=== PATIENT | male | born 1990 | race Hispanic/Latino ===

== ENCOUNTER 2023-06-27 10:15 | Emergency (ER) | payer OTHER, SELFPAY ==
[2023-06-27 10:19] VITALS: BP 115/68; PULSE 74; RESP 18; TEMP 36.8; O2SAT 95; BMI 46.0
--- NOTE | 2023-06-27 10:23 | DI.RAD.S_ITS ---
PROCEDURE: XR CHEST 1V INDICATIONS: cough bloody sputum TECHNIQUE: One view of the chest was acquired. COMPARISON: None. FINDINGS: Surgical changes and devices: None. Lungs and pleura: Lungs are clear. No pleural effusions or pneumothorax. Mediastinum: Mediastinal contours appear normal. Heart size is normal. Bones and chest wall: No suspicious bony lesions. Overlying soft tissues appear unremarkable. IMPRESSION: No acute cardiopulmonary process. Dictated by: Boris Romeo M.D. on 06/27/2023 at 11:31 Approved by: Boris Romeo M.D. on 06/27/2023 at 11:31
[2023-06-27 11:15] LABS: COVID-19 CEPHEID 4-PLEX PCR Negative (Negative); Influenza A - CEPHEID Flu A NEGATIVE (NEGATIVE); Influenza B - CEPHEID Flu B NEGATIVE (NEGATIVE); Respiratory Syncytial Virus Negative (Negative)
[2023-06-27] MEDS: ALBUTEROL/IPRATROPIUM 3 ML AMPUL INH ×2 (13:08→13:21)
[2023-06-27] MEDS: predniSONE 20 MG TABLET 40 MG PO (13:10)
[2023-06-27 13:47] VITALS: BP 127/66; PULSE 79; RESP 20; O2SAT 96
--- NOTE | 2023-06-27 14:54 | ED_ITS ---
HPI - URI/Sore Throat <Doreen Enriquez PA-C - Last Filed: 06/27/23 15:02> General Chief Complaint: Upper Respiratory Symptoms Stated Complaint: head aches, congestion, coughing blood Time Seen by Provider: 06/27/23 12:49 Source: patient Mode of arrival: Ambulatory History of Present Illness HPI Narrative: Patient is a 32-year-old male with a history of asthma who presents with cough, congestion, headache x3 days. He uses an albuterol inhaler as needed, reportedly several times a day at baseline. He has been using it recently with not much improvement in his shortness of breath or cough. He had a telehealth visit with his primary care yesterday and they prescribed him a Z-Mayank for walking pneumonia, as well as a codeine cough syrup. He presents today because he continues to feel unwell. He is not tried taking any Tylenol or cold medicine. He has had 2 episodes of blood-streaked sputum. He vapes. He is on no maintenance medication for his asthma. Related Data Previous Rx's Medication Instructions Recorded albuterol sulfate 2.5 mg/3 mL 2.5 mg (3 mL) inhalation Q4H PRN 06/27/23 (0.083 %) solution for nebulization shortness of breath or wheezing #90 mL compressor, for nebulizer #1 ea 06/27/23 nebulizer accessories #1 ea 06/27/23 Allergies Allergy/AdvReac Type Severity Reaction Status Date / Time No Known Drug Allergies Allergy Verified 06/27/23 10:23 Review of Systems <Doreen Enriquez PA-C - Last Filed: 06/27/23 15:02> Review of Systems ROS Unobtainable: All systems reviewed & are unremarkable except as noted in HPI and below Patient History <Doreen Enriquez PA-C - Last Filed: 06/27/23 15:02> Social History Smoking Status: Current every day smoker Smoking Status: Current every day smoker tobacco type: vaping alcohol intake frequency: 0-2 drinks per day Substance Use Type: does not use Exam <Doreen Enriquez PA-C - Last Filed: 06/27/23 15:02> Narrative Exam Narrative: GENERAL: 32 year old patient appears stated age. Well-developed patient, in no distress. NEURO: AOx3. HEAD: Atraumatic. Normocephalic. EYES: Pupils equal round and reactive. Extraocular motions intact. No scleral icterus. No injection or drainage. CARDIOVASCULAR: Regular rate and rhythm without murmurs, gallops, or rubs. RESPIRATORY: Bilateral wheezing with decreased air movement GASTROINTESTINAL: Abdomen soft, non-tender, nondistended. EXTREMITIES: No edema or joint tenderness. SKIN: No rash or erythema of visible areas Initial Vital Signs Initial Vital Signs: Vital Signs Temperature 98.3 F 06/27/23 10:19 Pulse Rate 74 06/27/23 10:19 Respiratory Rate 18 06/27/23 10:19 Blood Pressure 115/68 06/27/23 10:19 Pulse Oximetry 95 06/27/23 10:19 Oxygen Delivery Method Room Air 06/27/23 10:19 <Frederic Brown MD - Last Filed: 07/05/23 08:28> Initial Vital Signs Initial Vital Signs: Vital Signs Temperature 98.3 F 06/27/23 10:19 Pulse Rate 74 06/27/23 10:19 Respiratory Rate 18 06/27/23 10:19 Blood Pressure 115/68 06/27/23 10:19 Pulse Oximetry 95 06/27/23 10:19 Oxygen Delivery Method Room Air 06/27/23 10:19 Course <Doreen Enriquez PA-C - Last Filed: 06/27/23 15:02> Orders Ordered: Discontinued Medications Albuterol/Ipratropium (Albuterol/Ipratropium 3 Ml Ampul) 3 ml INH NOW ONE Stop: 06/27/23 12:59 Last Admin: 06/27/23 13:08 Dose: 3 ml Documented By: LILO Albuterol/Ipratropium (Albuterol/Ipratropium 3 Ml Ampul) 3 ml INH NOW ONE Stop: 06/27/23 13:18 Last Admin: 06/27/23 13:21 Dose: 3 ml Documented By: LILO Prednisone (Prednisone 20 Mg Tablet) 40 mg PO NOW ONE Stop: 06/27/23 12:59 Last Admin: 06/27/23 13:10 Dose: 40 mg Documented By: YUDELKA Vital Signs Vital signs: Vital Signs - 8 hr 06/27/23 10:19 06/27/23 13:47 Temperature 98.3 F Pulse Rate 74 79 Respiratory Rate 18 20 Blood Pressure 115/68 127/66 Pulse Oximetry 95 96 Oxygen Delivery Method Room Air Room Air <Frederic Brown MD - Last Filed: 07/05/23 08:28> Orders Ordered: Discontinued Medications Albuterol/Ipratropium (Albuterol/Ipratropium 3 Ml Ampul) 3 ml INH NOW ONE Stop: 06/27/23 12:59 Last Admin: 06/27/23 13:08 Dose: 3 ml Documented By: LILO Albuterol/Ipratropium (Albuterol/Ipratropium 3 Ml Ampul) 3 ml INH NOW ONE Stop: 06/27/23 13:18 Last Admin: 06/27/23 13:21 Dose: 3 ml Documented By: LILO Prednisone (Prednisone 20 Mg Tablet) 40 mg PO NOW ONE Stop: 06/27/23 12:59 Last Admin: 06/27/23 13:10 Dose: 40 mg Documented By: YUDELKA Vital Signs Vital signs: Vital Signs - 8 hr 06/27/23 10:19 06/27/23 13:47 Temperature 98.3 F Pulse Rate 74 79 Respiratory Rate 18 20 Blood Pressure 115/68 127/66 Pulse Oximetry 95 96 Oxygen Delivery Method Room Air Room Air MDM - URI/Sore Throat <Doreen Enriquez PA-C - Last Filed: 06/27/23 15:02> Lab Data Labs: Lab Results 06/27/23 Range/Units 10:25 SARS-CoV-2 (PCR) Negative (Negative) Influenza A (RT-PCR) Flu a negative (NEGATIVE) Influenza B (RT-PCR) Flu b negative (NEGATIVE) RSV (PCR) Negative (Negative) Imaging Data Chest x-ray: Radiologist's Impression: PROCEDURE:? XR CHEST 1V ? INDICATIONS:? cough bloody sputum ? TECHNIQUE:? One view of the chest was acquired.? ? COMPARISON:? None. ? FINDINGS:? ? Surgical changes and devices:? None.? ? Lungs and pleura:? Lungs are clear.? No pleural effusions or pneumothorax.? ? Mediastinum:? Mediastinal contours appear normal.? Heart size is normal.? ? Bones and chest wall:? No suspicious bony lesions.? Overlying soft tissues appear unremarkable.? ? ? IMPRESSION:? No acute cardiopulmonary process. ? ? Dictated by: Boris Romeo M.D. on 06/27/2023 at 11:31 ? ? Approved by: Boris Romeo M.D. on 06/27/2023 at 11:31 ? [facility] Narrative Medical decision making narrative: Multiple etiologies for patient's symptoms considered including, but not limited to: Asthma exacerbation, pneumonia, viral upper respiratory infection. Patient has normal vital signs and is afebrile. His chest x-ray shows diffuse haziness without any focal infiltrate, consistent with viral infection/asthma. His quad respiratory panel is negative. Patient is quite wheezy on exam, improved after 2 DuoNebs in the ER and oral prednisone. Suspect viral infection complicated by history of asthma. Suspect blood-streaked sputum secondary to frequent coughing, has not persisted while in emergency department. We will treat with 5 days of oral steroids. Suggested [id number] cold medicines and Tylenol for headache and congestion. Doubt bacterial component but may continue previously prescribed antibiotic and follow up with primary car e tomorrow as scheduled. Patient's symptoms improved over duration of stay with above-stated therapies. Findings and discharge diagnosis discussed with patient/family followed by verbalization of understanding Return precautions discussed with patient/family whom verbalize understanding of diagnosis and plan <Frederic Brown MD - Last Filed: 07/05/23 08:28> Lab Data Labs: Lab Results 06/27/23 Range/Units 10:25 SARS-CoV-2 (PCR) Negative (Negative) Influenza A (RT-PCR) Flu a negative (NEGATIVE) Influenza B (RT-PCR) Flu b negative (NEGATIVE) RSV (PCR) Negative (Negative) Discharge Plan Departure Patient Disposition: Home Clinical Impression: Asthma exacerbation Instructions: DI for Asthma -- Adult Activity Restrictions/Additional Instructions: *You have been diagnosed with asthma exacerbation. I have sent a prescription for a total of 5 days of steroids (you already took the 1st day in the emergency room) as well as a compressor, tubing and albuterol solution for nebulizer at home. Can continue taking your antibiotic as prescribed by your primary care. Follow up with your primary care tomorrow as scheduled. *What to do: *Please continue to take your regular medications as directed. [ x] New medication prescriptions sent to your pharmacy: [[facility]] [ ] New medication written as a paper prescription [ ] No new medications given *Please follow up with your primary care provider in 2-3 days, call for an appointment. Let them know you were seen in the Emergency Department and that we ask that you be seen in follow up. We will electronically transmit a record of today's note if your PCP is in our system *If you do not have a primary care provider please contact the [facility] Resource line at [phone]. They will ask some questions about your medical history and help get you set up with a doctor in the community. *Return to Emergency Department if you should have any new, worsening or concerning symptoms, such as [fever greater than 101 F, shaking chills, worsening pain, persistent vomiting or other concerning symptoms]. Prescriptions: New albuterol sulfate 2.5 mg /3 mL (0.083 %) solution for nebulization 2.5 mg inhalation Q4H PRN (Reason: shortness of breath or wheezing) Qty: 90 0RF (DME) compressor, for nebulizer Device See Rx Instructions .Route Qty: 1 0RF Rx Instructions: As directed (DME) nebulizer accessories Kit See Rx Instructions .Route Qty: 1 0RF Rx Instructions: As directed Stand Alone Forms: Patient Portal/API <Frederic rBown MD - Last Filed: 07/05/23 08:28> Cosign ED Attending Cosignature Attestation: I was immediately available in the department for consultation. ?This documentation has been reviewed and I agree with assessment and plan. Supervised by Frederic Brown MD
== END 2023-06-27 13:49 | disposition home or self-care (01) ==
PROVIDERS: Emergency Medicine; Emergency Provider Physician Assistant
DX: J45.901 Unspecified asthma with (acute) exacerbation (principal); R51.9 Headache, unspecified; Z20.822 Contact with and (suspected) exposure to COVID-19
CPT/HCPCS: 0241U; 71045; 99283

== ENCOUNTER → 2024-06-20 18:32 | Outpatient (CLI) | payer OTHER, MEDICAID, SELFPAY ==
[2024-06-20 19:23] LABS: Influenza A - CEPHEID Flu A NEGATIVE (NEGATIVE); Influenza B - CEPHEID Flu B NEGATIVE (NEGATIVE); Respiratory Syncytial Virus Negative (Negative)
[2024-06-20 19:28] LABS: COVID-19 CEPHEID 4-PLEX PCR POSITIVE (Negative)
== END ==
PROVIDERS: Visit Provider Nurse Practitioner Family
DX: R05.1 Acute cough (principal); J02.9 Acute pharyngitis, unspecified
CPT/HCPCS: 87635; 87400 ×2; 87420; 0241U; 87070; 87880

== ENCOUNTER → 2024-08-25 08:46 | Outpatient (CLI) | payer OTHER, SELFPAY ==
[2024-08-25 09:33] LABS: Influenza A - CEPHEID Flu A NEGATIVE (NEGATIVE); Influenza B - CEPHEID Flu B NEGATIVE (NEGATIVE); Respiratory Syncytial Virus Negative (Negative)
[2024-08-25 09:34] LABS: COVID-19 CEPHEID 4-PLEX PCR Negative (Negative)
== END ==
PROVIDERS: Visit Provider Physician Assistant Surgical
DX: R05.1 Acute cough (principal); R09.89 Other specified symptoms and signs involving the circulatory and respiratory systems
CPT/HCPCS: 0241U

== ENCOUNTER → 2024-12-24 11:01 | Outpatient (CLI) | payer OTHER, SELFPAY ==
[2024-12-24 11:47] LABS: Influenza A - CEPHEID Flu A NEGATIVE (NEGATIVE); Influenza B - CEPHEID Flu B POSITIVE (NEGATIVE); Respiratory Syncytial Virus Negative (Negative)
[2024-12-24 11:48] LABS: COVID-19 CEPHEID 4-PLEX PCR Negative (Negative)
== END ==
PROVIDERS: Visit Provider Nurse Practitioner Family
DX: Z20.828 Contact with and (suspected) exposure to other viral communicable diseases (principal)
CPT/HCPCS: 0241U

== ENCOUNTER 2024-12-24 11:03 | Emergency (ER) | payer OTHER, SELFPAY ==
[2024-12-24] VITALS (17 sets, daily range): BP systolic 108–135; BP diastolic 52–78; PULSE 78–101; RESP 9–22; TEMP 36.9–37.2; O2SAT 89–98; BMI 39.0
--- NOTE | 2024-12-24 11:39 | DI.RAD.S_ITS ---
PROCEDURE: XR CHEST 1V INDICATIONS: Shortness of breath TECHNIQUE: One view of the chest was acquired. COMPARISON: [facility], CR, XR CHEST 1V, 06/27/2023, 10:39. FINDINGS: Surgical changes and devices: None. Lungs and pleura: Lungs are clear. No pleural effusions or pneumothorax. Mediastinum: Mediastinal contours appear normal. Heart size is normal. Bones and chest wall: No suspicious bony lesions. Overlying soft tissues appear unremarkable. IMPRESSION: No acute cardiopulmonary pathology. Dictated by: Renzo Burk M.D. on 12/24/2024 at 12:31 Approved by: Renzo Burk M.D. on 12/24/2024 at 12:36
--- NOTE | 2024-12-24 11:52 | EKG_ITS ---
[address] [address] Test Date: 2024-12-24 Pat Name: Frank Edwards Department: [facility] Room: Gender: Male [employer]: SAMUEL : 1990 Requested By: Order Number: [id number] Reading MD: Burton Sheriff Measurements Intervals Alpha Rate: 95 P: 46 TN: 158 QRS: -87 QRSD: 82 T: 37 QT: 350 QTc: 439 Interpretive Statements Normal sinus rhythm Left axis deviation Inferior infarct , age undetermined Electronically Signed On 12-27-2024 18:28:17 PDT by Burton Sheriff
--- NOTE | 2024-12-24 11:58 | PC.NURSE ---
Pt anxious, States that he administered inhaler multiple times today. Sats 92-94% on RA
[2024-12-24 12:03] LABS: Add Manual Diff / Slide Review NO; Basophils Absolute Auto 0 /uL (0-100); Basophils Percent Auto 0.4 % (0-2); Eosinophils Absolute Auto 100 /uL (0-450); Eosinophils Percent Auto 1.3 % (2-4); Hematocrit 59.4 % (41-53); Lymphocytes Absolute Auto 1700 /uL (1100-4500); Lymphocytes Percent Auto 26.1 % (25-40); Mean Corpuscular HGB Conc 33.6 % (30-36); Mean Corpuscular Hemoglobin 29.7 PG (26-34); Mean Corpuscular Volume 88.4 fL (80-100); Monocytes Absolute Auto 700 /uL (0-900); Monocytes Percent Auto 11.4 % (3-14); Neutrophils Absolute Auto 3900 /uL (1500-7000); Neutrophils Percent Auto 60.8 % (50-75); Platelet Count 144 X10^3/uL (150-400); Red Blood Cell Count 6.72 X10^6/uL (4.5-5.9); Red Cell Distribution Width 14.4 % (11.6-14.8); White Blood Cell Count 6.4 X10^3/uL (4.5-11.0)
--- NOTE | 2024-12-24 12:06 | ED.GENADULT ---
HPI - General Adult General Chief complaint: Shortness of Breath/Dyspnea Stated complaint: SOB, O2 low Time Seen by Provider: 12/24/24 11:54 Source: patient Mode of arrival: Ambulatory History of Present Illness HPI narrative: 34-year-old gentleman with history chronic intermittent asthma began feeling ill 5 days ago with fevers, chills shortly thereafter became significantly nauseated with prolific vomiting unable to keep any liquids down 72 hours ago. Within the last 24 hours he has been able to keep liquids down but is now having more abdominal pain. Has not had much to eat in the last 5 days and does not yet having diarrhea. He is wheezing, he is having sweats, body aches, low-grade headaches and generally feels miserable. Because of his asthma they have an oxygen saturation monitor at home and found him to be in the low 80s at home. He comes in for additional evaluation. Nobody else home is currently sick. With his asthma he has been admitted to the hospital 1 prior time, has never required intubation. He has not having any palpitations, he does have some chest tightness and pain related to cough and breathing Related Data Home Medications Medication Instructions Recorded Confirmed albuterol sulfate 90 mcg/actuation 2 puff inhalation Q4H PRN 08/31/23 08/25/24 aerosol inhaler fluticasone propionate 44 1 puff inhalation BID 08/31/23 08/25/24 mcg/actuation HFA aerosol inhaler hydroxyzine HCl 25 mg tablet 25 mg PO BID PRN 08/31/23 08/25/24 inhalational spacing device #1 ea 08/31/23 08/25/24 (Compact Space Chamber) methadone 95mg PO DAILY 08/31/23 08/25/24 rizatriptan 5 mg disintegrating mg PO 08/31/23 08/25/24 tablet testosterone cypionate 200 mg/mL 100 mg IM 08/31/23 08/25/24 intramuscular oil terbinafine HCl 250 mg tablet 250 mg PO DAILY 06/20/24 08/25/24 Previous Rx's Medication Instructions Recorded albuterol sulfate 2.5 mg/3 mL 2.5 mg (3 mL) inhalation Q4H PRN 06/27/23 (0.083 %) solution for nebulization shortness of breath or wheezing #90 mL compressor, for nebulizer #1 ea 06/27/23 nebulizer accessories #1 ea 06/27/23 benzonatate 200 mg capsule 200 mg PO BID PRN cough #28 caps 06/20/24 semaglutide 2 mg/dose (8 mg/3 mL) 2 mg (0.75 mL) SUBCUT QWEEK #3 mL 12/05/24 subcutaneous pen injector albuterol sulfate 90 mcg/actuation 2 inh inhalation Q6H PRN shortness 12/24/24 breath activated powder inhaler of breath or wheezing #1 ea ondansetron 4 mg disintegrating 4 mg PO Q8H PRN nausea and 12/24/24 tablet vomiting #14 tabs oxycodone-acetaminophen 5 mg-325 1 tab PO Q6H PRN pain #14 tabs 12/24/24 mg tablet prednisone 20 mg tablet 20 mg PO DAILY #8 tabs 12/24/24 Allergies Allergy/AdvReac Type Severity Reaction Status Date / Time No Known Drug Allergies Allergy Verified 06/20/24 18:34 Review of Systems Review of Systems Narrative: Pertinent positive and negative findings as per HPI Patient History Medical History (Updated 12/24/24 @ 16:57 by Kyra Torres MD) Asthma Social History Smoking Status: Former smoker Smoking Status: Former smoker tobacco type: vaping alcohol intake frequency: 0-2 drinks per day Exam Initial Vital Signs Initial Vital Signs: Vital Signs Temperature 98.9 F 12/24/24 11:12 Pulse Rate 101 H 12/24/24 11:12 Respiratory Rate 22 12/24/24 11:12 Blood Pressure 110/68 12/24/24 11:12 Pulse Oximetry 89 L 12/24/24 11:12 Oxygen Delivery Method Room Air 12/24/24 11:12 General: Patient appears acutely ill, fatigued, diaphoretic, flushed, asks his to help with history as he is having difficulty speaking HEENT: Moist mucous membranes, normal sclera with reactive pupils, Neck: No JVD, no cervical adenopathy Respiratory: Lungs mild scattered wheeze in all lung stewart, rhonchi in the left base. No retractions appreciated Cardiac: Mildly tachycardic without murmurs Abdomen: Soft, nontender, no rebound or guarding, no flank pain Skin: Flushed without rashes or signs of skin infection Neurologic: Globally weak but otherwise Grossly neurologically intact with no obvious asymmetries or abnormalities Extremities: No trauma, well perfused, no lower extremity edema Psych: Cooperative, appropriate insight and affect Course Orders Ordered: ED Orders 12/24/24 11:39 XR chest 1V Stat EKG-12 Lead Stat Measure peak expiratory flow ONCE RT Consult Eval and Treat NOW 12/24/24 11:50 Complete Blood Count AUTO DIFF Stat Comprehensive Metabolic Panel Stat Lactate (Lactic Acid) Stat NT-proBNP (BNP-Adult 18+) Stat Prothrombin Time INR Stat Troponin I Stat 12/24/24 12:50 Blood Culture Stat 12/24/24 13:35 Lactate (Lactic Acid) Stat Sodium Chloride (Normal Saline 0.9%) 1,000 mls @ 1,000 mls/hr IV BOLUS ONE Stop: 12/24/24 16:57 Last Admin: 12/24/24 16:05 Dose: 1,000 mls/hr Documented By: Discontinued Medications Albuterol/Ipratropium (Albuterol/Ipratropium 3 Ml Ampul) 3 ml INH NOW ONE Stop: 12/24/24 12:19 Last Admin: 12/24/24 12:39 Dose: 3 ml Documented By: LILO Sodium Chloride (Normal Saline 0.9%) 1,000 mls @ 1,000 mls/hr IV BOLUS ONE Stop: 12/24/24 13:17 Last Infusion: 12/24/24 13:23 Dose: Infused Documented By: Admin: 12/24/24 12:39 Dose: 1,000 mls/hr Documented By: Ceftriaxone Sodium 2,000 mg/ (Sodium Chloride) 100 mls @ 200 mls/hr IV NOW ONE Stop: 12/24/24 12:19 Last Infusion: 12/24/24 13:20 Dose: Infused Documented By: Admin: 12/24/24 12:38 Dose: 200 mls/hr Documented By: Azithromycin 500 mg/ Dextrose 250 mls @ 250 mls/hr IV NOW ONE Stop: 12/24/24 12:19 Last Infusion: 12/24/24 14:35 Dose: Infused Documented By: Admin: 12/24/24 13:32 Dose: 250 mls/hr Documented By: Ketorolac Tromethamine (Ketorolac 30 Mg/Ml Vial) 15 mg IV NOW ONE Stop: 12/24/24 12:19 Last Admin: 12/24/24 12:38 Dose: 15 mg Documented By: Methylprednisolone (Methylprednisolone 125 Mg/2 Ml Vial) 125 mg IV NOW ONE Stop: 12/24/24 12:19 Last Admin: 12/24/24 12:38 Dose: 125 mg Documented By: Ondansetron HCl (Ondansetron 4 Mg/2 Ml Inj) 4 mg IV NOW ONE Stop: 12/24/24 12:19 Last Admin: 12/24/24 13:39 Dose: Not Given Documented By: Oxycodone/Acetaminophen (Oxycodone/Acetaminophen 5/325 Tablet) 1 tab PO NOW ONE Stop: 12/24/24 16:18 Last Admin: 12/24/24 16:21 Dose: 1 tab Documented By: Vital Signs Vital signs: Vital Signs - 8 hr 12/24/24 11:12 12/24/24 11:59 12/24/24 12:00 Temperature 98.9 F Pulse Rate 101 H 94 H 94 H Respiratory Rate 22 10 L 10 L Blood Pressure 110/68 Pulse Oximetry 89 L 91 92 Oxygen Delivery Method Room Air Nasal Cannula Oxygen Flow Rate 2 12/24/24 12:01 12/24/24 12:01 12/24/24 12:30 Temperature Pulse Rate 98 H Respiratory Rate 10 L Blood Pressure 122/74 118/77 Pulse Oximetry 90 L Oxygen Delivery Method Nasal Cannula Oxygen Flow Rate 2 12/24/24 12:30 12/24/24 12:40 12/24/24 13:00 Temperature Pulse Rate 91 H Respiratory Rate 13 Blood Pressure 128/62 Pulse Oximetry 94 93 Oxygen Delivery Method Nasal Cannula Oxygen Flow Rate 2 12/24/24 13:00 12/24/24 13:30 12/24/24 13:30 Temperature Pulse Rate 94 H 86 Respiratory Rate 17 9 L Blood Pressure 121/59 L Pulse Oximetry 92 92 Oxygen Delivery Method Oxygen Flow Rate 12/24/24 14:00 12/24/24 14:00 12/24/24 14:30 Temperature Pulse Rate 82 85 Respiratory Rate 10 L 14 Blood Pressure 110/58 L Pulse Oximetry 91 92 Oxygen Delivery Method Nasal Cannula Oxygen Flow Rate 2 12/24/24 14:30 12/24/24 15:00 12/24/24 15:00 Temperature Pulse Rate 80 Respiratory Rate 16 Blood Pressure 111/52 L 108/58 L Pulse Oximetry 94 Oxygen Delivery Method Room Air Oxygen Flow Rate 12/24/24 15:30 12/24/24 15:30 12/24/24 16:05 Temperature Pulse Rate 83 Respiratory Rate 11 L 16 Blood Pressure 108/57 L Pulse Oximetry 92 93 Oxygen Delivery Method Oxygen Flow Rate Medical Decision Making Lab Data 12/24/24 11:50 12/24/24 11:50 Labs: Lab Results 12/24/24 12/24/24 Range/Units 11:50 13:35 WBC 6.4 (4.5-11.0) X10^3/uL RBC 6.72 H (4.5-5.9) X10^6/uL Hgb 20.0 H (13.5-17.5) g/dL Hct 59.4 H (41-53) % MCV 88.4 (80-100) fL MCH 29.7 (26-34) PG MCHC 33.6 (30-36) % RDW 14.4 (11.6-14.8) % Plt Count 144 L (150-400) X10^3/uL Neut % (Auto) 60.8 (50-75) % Lymph % (Auto) 26.1 (25-40) % Collin % (Auto) 11.4 (3-14) % Eos % (Auto) 1.3 L (2-4) % Baso % (Auto) 0.4 (0-2) % Neut # (Auto) 3900 (5416-9724) /uL Lymph # (Auto) 1700 (3869-3301) /uL Collin # (Auto) 700 (0-900) /uL Eos # (Auto) 100 (0-450) /uL Baso # (Auto) 0 (0-100) /uL PT 13.2 H (9.4-12.5) SECONDS INR 1.2 (0.9-1.3) Sodium 138 (137-145) mmol/L Potassium 3.6 (3.4-5.1) mmol/L Chloride 92 L (98-107) mmol/L Carbon Dioxide 38 H (22-32) mmol/L BUN 13 (9-20) mg/dL Creatinine 0.93 (0.66-1.25) mg/dL Estimated GFR > 60 (>60) mL/min BUN/Creatinine Ratio 14.0 (6-22) Glucose 102 H (70-100) mg/dL Lactate 1.1 1.0 (0.7-2.1) mmol/L Calcium 8.5 (8.4-10.2) mg/dL Total Bilirubin 2.7 H (0.2-1.3) mg/dL AST 63 H (17-59) IU/L ALT 58 H (<50) IU/L Alkaline Phosphatase 92 (38-126) U/L Troponin I < 0.012 (0.01-0.034) ng/mL NT-Pro-B Natriuret Pep < 20 (<125) pg/mL Total Protein 7.8 (6.3-8.2) g/dL Albumin 4.3 (3.5-5.0) g/dL Globulin 3.5 (1.7-4.1) g/dL Albumin/Globulin Ratio 1.2 (1.0-2.8) MDM Narrative Medical decision making narrative: CC: Fever, respiratory distress Complicating co-morbidities: History of mild intermittent asthma Data collected from: patient, Medical records reviewed: Notes from urgent care reviewed 83% saturations noted on arrival there earlier this morning. Differential considered: Viral syndrome, acute asthma exacerbation, respiratory failure Exam documented above, pertinent findings include: Patient appears acutely ill, is able to speak full sentences, rhonchi in the left base with scattered wheezing throughout. Tachycardic with temperature increasing at this time Lab Test results independently reviewed as above. Pertinent findings: Serology testing done at urgent Care this morning shows he is positive in for influenza B Independently reviewed EKG: Sinus tachycardia without ischemic changes Imaging studies independently reviewed: No cardiomegaly, concern for developing bibasilar infiltrates right greater than left Treatments: Fluids, Zofran, Toradol, steroids for his asthma, DuoNeb and albuterol, ceftriaxone and azithromycin for presumed community-acquired pneumonia complicating influenza B Discussion: Otherwise healthy 34-year-old gentleman with mild intermittent asthma presenting with influenza B, moderate volume concentration without acute kidney failure. Not requiring oxygen, he is able to eat and drink. He is received 2 L of fluid is feeling better, oxygen saturations off room air with ambulation in the department are in the 94% range. Will discharge him home with refill of his albuterol inhaler, 7 days of prednisone for an acute asthma exacerbation, brief prescription of oxycodone to help with overall myalgias pain. There was no indication for antibiotics, he does not require admission at this time. Reviewed signs and symptoms of worsening disease and reasons to return to the emergency department and he is safe for discharge home Discharge Plan Departure Patient Disposition: Home Clinical Impression: Influenza, Acute dehydration Acute asthma exacerbation Qualifiers: Asthma severity: mild Asthma persistence: intermittent Qualified Code(s): J45.21 - Mild intermittent asthma with (acute) exacerbation Instructions: DI for Asthma -- Adult, DI for Influenza -- Adult Activity Restrictions/Additional Instructions: Thank you for coming in today You have influenza B. This is what is giving you the fevers and the general overall body misery. Unfortunately, influenza is likely going to last 7-10 days You are also having an acute asthma exacerbation, there was no evidence of pneumonia, antibiotics are not going to be helpful but using your albuterol inhaler and a 7 day prednisone taper will be useful I have also given you a prescription for Percocet to help with the overall general body aches Finally, I am going to give you a prescription for Zofran to help with the any nausea if it returns If you feel that you are getting worse, you do need to return to the ER Prescriptions: New prednisone 20 mg tablet 20 mg PO DAILY Qty: 8 0RF Rx Instructions: 40 mg x 2 days, 20 mg x 2 days, 10 mg x 4 days albuterol sulfate 90 mcg/actuation aerosol powdr breath activated 2 inh inhalation Q6H PRN (Reason: shortness of breath or wheezing) Qty: 1 0RF oxycodone-acetaminophen 5-325 mg tablet 1 tab PO Q6H PRN (Reason: pain) Qty: 14 0RF ondansetron 4 mg tablet,disintegrating 4 mg PO Q8H PRN (Reason: nausea and vomiting) Qty: 14 0RF No Action testosterone cypionate 200 mg/mL oil 100 mg IM (DME) Compact Space Chamber Spacer See Rx Instructions .ROUTE DIRECTED Qty: 1 Rx Instructions: As directed albuterol sulfate 90 mcg/actuation HFA aerosol inhaler 2 puff inhalation Q4H PRN rizatriptan 5 mg tablet,disintegrating PO fluticasone propionate 44 mcg/actuation HFA aerosol inhaler 1 puff inhalation BID methadone 95mg PO DAILY hydroxyzine HCl 25 mg tablet 25 mg PO BID PRN terbinafine HCl 250 mg tablet 250 mg PO DAILY benzonatate 200 mg capsule 200 mg PO BID PRN (Reason: cough) Qty: 28 0RF semaglutide 2 mg/dose (8 mg/3 mL) pen injector 2 mg SUBCUT QWEEK Qty: 3 3RF albuterol sulfate 2.5 mg /3 mL (0.083 %) solution for nebulization 2.5 mg inhalation Q4H PRN (Reason: shortness of breath or wheezing) Qty: 90 0RF (DME) compressor, for nebulizer Device See Rx Instructions .Route Qty: 1 0RF Rx Instructions: [place] [place] nebulizer accessories Kit See Rx Instructions .Route Qty: 1 0RF Rx Instructions: As directed Stand Alone Forms: Patient Portal/API/Survey
[2024-12-24 12:08] LABS: INR 1.2 (0.9-1.3); Prothrombin Time 13.2 SECONDS (9.4-12.5)
--- NOTE | 2024-12-24 12:09 | PC.NURSE ---
Pt placed on 2 L per NC by RT Guy. Sats were 89-95 on RA. Improved to 97 on 2 L per NC.
[2024-12-24 12:15] LABS: Alanine Aminotransferase 58 IU/L (<50); Albumin 4.3 g/dL (3.5-5.0); Albumin Globulin Ratio 1.2 (1.0-2.8); Alkaline Phosphatase 92 U/L (38-126); Aspartate Aminotransferase 63 IU/L (17-59); Bilirubin Total 2.7 mg/dL (0.2-1.3); Blood Urea Nitrogen 13 mg/dL (9-20); Calcium 8.5 mg/dL (8.4-10.2); Carbon Dioxide 38 mmol/L (22-32); Chloride 92 mmol/L (98-107); Estimated Glomerular Filt Rate > 60 mL/min (>60); Globulin 3.5 g/dL (1.7-4.1); Glucose 102 mg/dL (70-100); HEMOLYSIS 22 (0-50); Lactate (Lactic Acid) 1.1 mmol/L (0.7-2.1); Potassium 3.6 mmol/L (3.4-5.1); Sodium 138 mmol/L (137-145); Total Protein 7.8 g/dL (6.3-8.2)
[2024-12-24 12:27] LABS: NT-proBNP (BNP-Adult 18+) < 20 pg/mL (<125); Troponin I < 0.012 ng/mL (0.01-0.034)
[2024-12-24] MEDS: methylPREDNISolone 125 MG/2 ML VIAL IV (12:38)
[2024-12-24] MEDS: cefTRIAXone 2,000 MG in SODIUM CHLORIDE 0.9% 100 ML 200 MG IV (12:38)
[2024-12-24] MEDS: KETOROLAC 30 MG/ML VIAL 15 MG IV (12:38)
[2024-12-24] MEDS: ALBUTEROL/IPRATROPIUM 3 ML AMPUL INH (12:39)
[2024-12-24] MEDS: SODIUM CHLORIDE 0.9% 1,000 ML 1000 ML IV ×2 (12:39→16:05)
[2024-12-24] MEDS: AZITHROMYCIN 500 MG in DEXTROSE 5% IN WATER 250 ML 250 MG IV (13:32)
--- NOTE | 2024-12-24 16:17 | PC.NURSE ---
Pt reports he has ALLEN pain. Dr Torres notified.
[2024-12-24] MEDS: OXYCODONE/ACETAMINOPHEN 5/325 TABLET 1 TAB PO (16:21)
--- NOTE | 2024-12-24 16:24 | PC.NURSE ---
Ambulatory on RA at 90%-94% Dr Torres notified.
== END 2024-12-24 17:15 | disposition home or self-care (01) ==
PROVIDERS: Emergency Provider Emergency Medicine
DX: J10.1 Influenza due to other identified influenza virus with other respiratory manifestations (principal); E86.0 Dehydration; J45.21 Mild intermittent asthma with (acute) exacerbation; R50.9 Fever, unspecified; R11.2 Nausea with vomiting, unspecified; R51.9 Headache, unspecified; Z87.891 Personal history of nicotine dependence
CPT/HCPCS: 0241U; 36415; 71045; 80053; 83605; 83880; 84484; 85025; 85610; 87040; 93005; 94640; 96361; 96365; 96367; 96375; 99285; J0696; J1885; J2919

== ENCOUNTER → 2025-04-04 14:13 | Outpatient (CLI) | payer OTHER, SELFPAY | PROVIDERS: PCP Student in an Organized Health Care Education/Training Program; Visit Provider Nurse Practitioner Family | DX: S31.105A Unspecified open wound of abdominal wall, periumbilic region without penetration into peritoneal cavity, initial encounter (principal) | CPT/HCPCS: 87070; 87075; 87077; 87186; 87205 ==

== ENCOUNTER → 2025-05-20 07:13 | Outpatient (CLI) | payer OTHER, SELFPAY ==
[2025-05-20 07:41] LABS: Hematocrit 52.1 % (41-53); Hemoglobin 18.0 g/dL (13.5-17.5); Mean Corpuscular HGB Conc 34.5 % (30-36); Mean Corpuscular Hemoglobin 29.8 PG (26-34); Mean Corpuscular Volume 86.5 fL (80-100); Platelet Count 147 X10^3/uL (150-400)
[2025-05-20 08:03] LABS: Alanine Aminotransferase 46 IU/L (<50); Albumin 4.1 g/dL (3.5-5.0); Albumin Globulin Ratio 1.5 (1.0-2.8); Alkaline Phosphatase 77 U/L (38-126); Blood Urea Nitrogen 17 mg/dL (9-20); Calcium 8.6 mg/dL (8.4-10.2); Carbon Dioxide 29 mmol/L (22-32); Chloride 103 mmol/L (98-107); Cholesterol 158 mg/dL (140-199); Estimated Glomerular Filt Rate > 60 mL/min (>60); Globulin 2.7 g/dL (1.7-4.1); Glucose 99 mg/dL (70-99); HDL Cholesterol 53 mg/dL (40-60); HEMOLYSIS 33 (0-50); Potassium 4.3 mmol/L (3.4-5.1); Sodium 138 mmol/L (137-145); Total Protein 6.8 g/dL (6.3-8.2); Triglycerides 102 mg/dL (35-150)
[2025-05-20 08:24] LABS: Atypical Lymphocytes Percent 1.0 %; Basophils Percent Manual 2.0 % (0-1); Eosinophils Percent Manual 4.0 % (2-4); Lymphocytes Percent Manual 51.0 % (25-45); Monocytes Percent Manual 11.0 % (2-11); Neutrophils Absolute Manual 1767 /uL (3000-5900); Segmented Neutrophils Percent 31.0 % (38-70); Total Cells Counted 100
[2025-05-20 08:25] LABS: Hypochromasia 1+
[2025-05-20 08:26] LABS: Anisocytosis 1+
[2025-05-20 08:34] LABS: TSH w/ Reflex to FT4 1.99 uIU/mL (0.47-4.68)
[2025-06-08 16:40] LABS: Percent Free Testosterone 4.05 % (1.50-4.20)
== END ==
PROVIDERS: PCP Student in an Organized Health Care Education/Training Program; Referring Provider Student in an Organized Health Care Education/Training Program; Visit Provider Student in an Organized Health Care Education/Training Program
DX: E29.1 Testicular hypofunction (principal); E66.9 Obesity, unspecified
CPT/HCPCS: 36415; 80053; 80061; 84402; 84403; 84443; 85025

== ENCOUNTER 2025-07-17 06:31 | Day surgery (SDC) | payer OTHER, SELFPAY ==
[2025-07-13 14:18] VITALS: BMI 45.0
[2025-07-14 09:06] VITALS: BMI 45.0
--- NOTE | 2025-07-17 | PATH_ITS ---
[facility] Accession Number: [id number] No. of containers..02 Tissue . 01 Material submitted: . PART A: body - LEFT LOWER EXTREMITY MASS PART B: body - EPIDERMAL ILCLUSION CYST . 01 Diagnosis: A. SKIN, LOWER EXTREMITY, EXCISION: Neurofibroma with plexiform features. . B. SKIN, LEFT SHOULDER (PER PROVIDED OP NOTE), EXCISION: Epidermoid cyst. Adjacent keloidal scar. MRV 07/27/2025 1839 Local . 01 Electronically signed: . Julio Levy MD, Dermatopathologist NPI- [id number] . 01 Gross description: . A. Received in formalin with two patient identifiers and left lower extremity mass and consists of a 1.5 x 0.8 x 0.7 cm, billingsley-white, irregular, slightly rubbery, and partially encapsulated tissue which is inked and serially to show a white, fibrotic, homogeneous cut surface. The specimen is entirely submitted in cassette A1. Additionally received in the same container is a 3.4 x 0.7 cm, billingsley-brown, wrinkled, unremarkable ellipse of skin excised to the depth of 0.4 cm. The subcutaneous tissue is white and slightly fibrotic. No additional lesions are appreciated. The specimen is entirely submitted in cassettes A2-A3. Ellipse of skin entirely submitted. B. Received in formalin with two patient identifiers and epidermal inclusion cyst and consists of a 2.7 x 0.9 cm ellipse of skin excised to the depth of 1.1 cm. The surface of the skin is billingsley-brown and wrinkled with a central 0.4 cm slight umbilication. The specimen is inked and serially sectioned to show a 0.8 x 0.4 x 0.4 cm, billingsley-brown ruptured, eccentric, unilocular, grumous-filled cyst. The remaining subcutaneous is diffusely white and fibrotic. [employer] sections of the cyst and overlying skin are submitted in cassette B1. ([id number]) /MRV 07/27/2025 1839 Local . 01 Pathologist provided ICD-10: L72.0, L91.0, D36.10 . 01 CPT . 865216, [id number] Specimen Comment: A courtesy copy of this report has been sent to [facility] Pathology Performed at: [address] [address], [place], [place] [id number] MD Brant Weeks MD Phone: [phone]
--- NOTE | 2025-07-17 05:56 | PM.PREOP ---
Pre-operative Note Interval Note History & Physical reviewed/Exam performed by Physician: Yes Changes to H&P: No ASA Class (for procedural sedation): III
[2025-07-17 07:10] VITALS: BP 118/67; PULSE 77; RESP 16; TEMP 37.1; O2SAT 97; BMI 45.0
[2025-07-17] MEDS: LACTATED RINGERS 1,000 ML 42 ML IV ×2 (07:19→08:18)
--- NOTE | 2025-07-17 08:04 | SUR.OPER ---
Supine on padded OR bed, head on pillow, arms secured on padded arm boards at <90 degrees abduction, legs uncrossed, safety belt at abdomen.
[2025-07-17 09:00] VITALS: BP 124/61; PULSE 74; RESP 12; TEMP 36.8; O2SAT 93
--- NOTE | 2025-07-17 09:03 | P.OP_ITS ---
Operative Date/Time/Diagnoses Date of procedure: 07/17/25 Time of procedure: 09:03 Pre-op diagnosis: 1.) LLE mass 2.) LT shoulder mass Post-op diagnosis: same (LLE neuroma vs scar tx, Lt shoulder sebaceous cyst) Procedure & Clinicians Procedure: Excision 4cm lesion, subfascial LLE, excision 4cm lesion LT shoulder Same procedure(s) as scheduled: Yes Indications: 34yo M had lesions removed at another hospital, both recurred. LLE lesion very painful to exam. Surgeon: Juma Gupta Assisted?: No Anesthesia Type: MAC +/- Operative Notes Findings: LLE nodule neuroma vs scar tx, sebaceous cyst on LT shoulder Closure Type: primary Specimen(s): other (both lesions sent to path) Applied: none Estimated Blood Loss (mL): 5 Blood products transfused: none Procedure in detail: After informed consent and satisfactory sedation, both areas were prepped and draped in the usual sterile manner. Surgical time-out was performed with all team members in agreement. Both lesions were infiltrated with 0.5% Marcaine with epinephrine in the skin and subcutaneous tissues, total less than 30cc vial. We addressed the left lower extremity lesion first. I excised the old scar in an elliptical fashion with a 15 blade. This measured 4 cm. Hemostasis was achieved with cautery. There was a palpable nodule approximately 5 mm beneath the fascia. It was excised in an elliptical fashion and sent with the scar to pathology. This was very painful to the patient and clinically consistent with a neuroma versus painful scar tissue. The fascia was closed using 3-0 Vicryl interrupted. The subcutaneous plane was reapproximated with 3- 0 Vicryl interrupted. The skin incision was closed using 4-0 Monocryl in a subcuticular manner. Dermabond glue was applied as a final dressing. We then addressed the lesion on the left shoulder in a similar manner. The old scar was excised as an ellipse of skin and this measured 4 cm. We continued through the skin and subcutaneous tissues. A sebaceous cyst was encountered and this was excised completely including the capsule. Hemostasis was achieved with cautery. I closed the subcutanous plan with 3-0 Vicryl interrupted. The skin incision was closed using 4-0 Monocryl in a subcuticular manner. Dermabond glue was applied as a final dressing. This shoulder excision included skin and subcutaneous tissue. The estimated blood loss was minimal. The instrument sponge and needle counts were all correct x2. The patient tolerated the procedure well and was transported to the recovery area in stable condition. Complications: none Post-operative Condition: stable Disposition: PACU Plan for aftercare: PACU then home
[2025-07-17 09:05] VITALS: BP 108/51; PULSE 64; RESP 14; O2SAT 96
[2025-07-17 09:12] VITALS: BP 113/59; PULSE 68; RESP 14; O2SAT 97
== END 2025-07-17 09:30 | disposition home or self-care (01) ==
PROVIDERS: PCP Student in an Organized Health Care Education/Training Program; Referring Provider Surgery; Visit Provider Surgery
PROC: (CPT 27619; principal; 2025-07-17 07:45)
DX: D36.10 Benign neoplasm of peripheral nerves and autonomic nervous system, unspecified (principal); L72.8 Other follicular cysts of the skin and subcutaneous tissue; L91.0 Hypertrophic scar; Z87.891 Personal history of nicotine dependence; G47.33 Obstructive sleep apnea (adult) (pediatric)
CPT/HCPCS: 27619; 23071; J2405; J2704; J7120